=== PATIENT | female | born 1965 | race Caucasian/White ===

== ENCOUNTER 2017-09-12 17:36 | Emergency (ER) | payer BC ==
[2017-09-12 17:42] VITALS: TEMP 98.4
--- NOTE | 2017-09-12 18:15 | ED ---
Lower Extremity Injury HPI - General Source: patient, RN notes reviewed Mode of arrival: ambulatory Limitations: no limitations <Jennifer Carvalho - Last Filed: 09/12/17 18:52> <Shahid Boudreaux - Last Filed: 09/12/17 19:19> - General Chief Complaint: Extremity Injury, Lower Stated Complaint: Hip pain Time Seen by Provider: 09/12/17 18:02 - History of Present Illness Initial Comments: This is a 52-year-old female who presents to the emergency department with chief complaint of right hip pain. 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 She states that one month ago she was leaving one of her clients homes and was carrying two heavy bags. She states that she turned around to talk with the client, missed a step and susanna her right hip. She states that the next day she felt some mild pain in the right hip. She states that over the past month pain has progressed. She also reports having muscle spasms. She states that she has been taking Tylenol which helped with the pain and she has also seen chiropractor. Patient states that today the Tylenol has not helped with the pain. Patient denies any back pain at this time. She denies any recent falls. Denies fevers or chills, chest pain or shortness of breath, abdominal pain, nausea or vomiting, numbness or tingling, dysuria or hematuria. (Jennifer Carvalho) - Related Data Allergies Allergy/AdvReac Type Severity Reaction Status Date / Time aspirin Allergy Rash/Hives Verified 09/12/17 17:42 NSAIDS (Non-Steroidal Allergy Rash/Hives Verified 09/12/17 17:42 Anti-Inflamma Review of Systems ROS Other: All systems not noted in ROS Statement are negative. <Jennifer Carvalho - Last Filed: 09/12/17 18:52> ROS Other: All systems not noted in ROS Statement are negative. <Shahid Boudreaux - Last Filed: 09/12/17 19:19> ROS Statement: Those systems with pertinent positive or pertinent negative responses have been documented in the HPI. Past Medical History Past Medical History: Hypertension, Thyroid Disorder History of Any Multi-Drug Resistant Organisms: MRSA Date of last positivie culture/infection: 2015 MDRO Source:: middle of back Past Surgical History: Hysterectomy, Orthopedic Surgery Additional Past Surgical History / Comment(s): partial hysterectomy 2014, left knee surgery Past Psychological History: Anxiety Smoking Status: Current every day smoker Past Alcohol Use History: Occasional Past Drug Use History: None Reported <Jennifer Carvalho - Last Filed: 09/12/17 18:52> General Exam Limitations: no limitations <Jennifer Carvalho - Last Filed: 09/12/17 18:52> <Shahid Boudreaux - Last Filed: 09/12/17 19:19> - General Exam Comments Initial Comments: General: Awake and alert, well-developed; in no apparent distress. HEENT: Head atraumatic, normocephalic. Pupils are equal, round and reactive to light. Extraocular movements intact. Oropharynx moist without erythema or exudate. Neck: Supple. Normal ROM. Cardiovascular: Regular rate and rhythm. No murmurs, rubs or gallops. Chest symmetrical. Respiratory: Lungs clear to auscultation bilaterally. No wheezes, rales or rhonchi. Normal respiratory effort with no use of accessory muscles. Musculoskeletal: There is tenderness along the the posterior superior rim of the pelvis on the right side. No SI joint tenderness. No lumbar vertebral point tenderness. No greater trochanter tenderness. Sensation is intact. Pedal and posterior tibial pulses are 2+ equal and palpable bilaterally. Ambulating normally. Skin: [place], warm and dry without rashes or lesions. Neurological: Alert and oriented x3. CN II-XII grossly intact. Speech is fluent and answers are appropriate. No focal neuro deficits. Psychiatric: Normal mood and affect. No overt signs of depression or anxiety noted. (Jennifer Carvalho) Vital Signs 09/12/17 17:37 Temperature 98.4 F Pulse Rate 77 Respiratory 18 Rate Blood Pressure 202/92 O2 Sat by Pulse 98 Oximetry Medical Decision Making - Radiology Data Radiology results: report reviewed, image reviewed <Jennifer Carvalho - Last Filed: 09/12/17 18:52> <Shahid Boudreaux - Last Filed: 09/12/17 19:19> - Medical Decision Making This is a 52-year-old female who presents to the emergency department with chief complaint of right hip pain. Patient states that she has been experiencing progression of right hip pain for the past month. She also reports muscle spasms. Patient states that she susanna her hip one month ago when she missed a step. On physical examination, there is tenderness along the posterior superior rim of the right pelvis. No vertebral bony point tenderness. No SI joint tenderness. Patient is neurovascularly intact. X-ray of the right hip and pelvis revealed no acute abnormalities. Case discussed with attending physician Dr. Boudreaux. Patient will be provided with follow-up to orthopedics. Recommended rest, heating pad and anti-inflammatories, however patient states that she cannot take anti-inflammatories. Patient refuses prescription for muscle relaxers. Vital signs are stable and patient is in no acute distress. She will be discharged home at this time. All questions answered. (Jennifer Carvalho) - Radiology Data X-ray right hip and AP pelvis impression: No acute abnormality of the pelvis and right hip. Normal right hip joint space. As read by Dr. Kwon. (Jennifer Carvalho) Disposition Is patient prescribed a controlled substance at d/c from ED?: No Time of Disposition: 19:05 <Jennifer Carvalho - Last Filed: 09/12/17 18:52> Is patient prescribed a controlled substance at d/c from ED?: Yes When asked, does pt state using other controlled substances?: No If prescribed controlled substance>3 days was MAPS reviewed?: Prescribed <3 Days If opioid is for acute pain is fill amount 7 days or less?: Yes If Rx opioid, was Start Talking consent form obtained?: Yes <Shahid Boudreaux - Last Filed: 09/12/17 19:19> Clinical Impression: Right hip pain Disposition: HOME SELF-CARE Condition: Good Instructions: Hip Pain (ED) Additional Instructions: Please follow up with Dr. Schofield, [facility] for further evaluation and treatment. Please follow up with primary care provider within 1-2 days. Return to emergency department if symptoms should worsen or any concerns arise. Referrals: None,Stated [Primary Care Provider] - 1-2 days Peter Schofield MD [STAFF PHYSICIAN] - 1-2 days
--- NOTE | 2017-09-12 18:49 | XR ---
EXAMINATION TYPE: XR Hip RT and AP Pelvis DATE OF EXAM: 09/12/2017 COMPARISON: NONE HISTORY: Right hip pain TECHNIQUE: A single AP view of the pelvis is obtained. Two views of the right hip are obtained. FINDINGS: The pelvic ring is intact. Proximal femurs and hip joints are intact. Right hip joint spac e is fairly well-maintained. Sacroiliac joints appear normal. IMPRESSION: No acute abnormality of the pelvis and right hip. Normal right hip joint space.
[2017-09-12 19:26] VITALS: BP 170/78; PULSE 80; RESP 16
== END 2017-09-12 19:25 | disposition home or self-care (01) ==
LOC: EC 17:36
DX: M25.551 Pain in right hip (principal); F17.200 Nicotine dependence, unspecified, uncomplicated; Z86.14 Personal history of Methicillin resistant Staphylococcus aureus infection; Z98.890 Other specified postprocedural states; Z88.6 Allergy status to analgesic agent; X58.XXXA Exposure to other specified factors, initial encounter
CPT/HCPCS: 73502; 99283

== ENCOUNTER → 2017-11-11 | Outpatient (CLI) | payer BC ==
--- NOTE | 2017-11-11 12:20 | XR ---
EXAMINATION TYPE: XR chest 2V DATE OF EXAM: 11/11/2017 COMPARISON: 11/11/2017 HISTORY: Shortness of breath TECHNIQUE: Frontal and lateral views of the chest are obtained. FINDINGS: Scattered senescent parenchymal changes noted. Hyperinflation compatible with COPD. No evidence for infiltrate. No evidence for atelectasis. Heart size is stable. Mediastinal structures are stable and grossly unremarkable. No evidence for hilar prominence. Degenerative changes dorsal spine. IMPRESSION: 1. No evidence for acute pulmonary disease.
== END | disposition home or self-care (01) ==
LOC: RADXRMAIN 11:59
PROVIDERS: ATTEND Physician Assistant
DX: J18.0 Bronchopneumonia, unspecified organism (principal)
CPT/HCPCS: 71046